=== PATIENT | female | born 1970 | race Caucasian/White ===

== ENCOUNTER 2018-07-24 14:10 | Emergency (ER) | payer OTHER ==
[~2018-07-24] VITALS: Ht 167.6 cm; Wt 107.5 kg
[2018-07-24 14:17] VITALS: BP 146/81; Ht 167.6 cm; Wt 107.5 kg
== END 2018-07-24 15:35 | disposition home or self-care (01) ==
LOC: ED 14:10
DX: M19.042 Primary osteoarthritis, left hand (principal); Z98.890 Other specified postprocedural states